=== PATIENT | male | born 1960 | race Caucasian/White ===

== ENCOUNTER 2023-09-04 09:25 | Observation (INO) ==
[~2023-09-04 09:25] MED LIST: Dexamethasone IV 4 MG/ML VIAL 1 ml VIAL ONE; Lidocaine 2% PF 5 ML VIAL ONE; Midazolam 2 mg/2 ml VIAL 1 mg/ml 2 ml VIAL (2 mg) ONE; Ondansetron 4 mg VIAL 2 MG/ML 2 ml VIAL ONE; Propofol 10 MG/ML 20 ML BTL ONE; fentaNYL 100 mcg/2 ml 50 MCG/ML VIAL ONE
[2023-09-04] MEDS ORDERED: Lidocaine 1% VIAL 10 MG/ML 30 ML VIAL ONE (10:23)
[2023-09-04] MEDS ORDERED: Bupivacaine 0.25% SDV 30 ML ONE (10:23)
[2023-09-04] MEDS ORDERED: ceFAZolin VIAL VIAL ONE (11:14)
[2023-09-04] MEDS ORDERED: fentaNYL 100 mcg/2 ml 50 MCG/ML VIAL ONE ×2 (11:23→12:46)
[2023-09-04] MEDS ORDERED: Lactulose 30 ml UDC PO PRN (12:25)
[2023-09-04] MEDS ORDERED: Ondansetron ODT 4 mg TAB 4 MG TAB PO PRN (12:25)
[2023-09-04] MEDS ORDERED: Ondansetron 4 mg VIAL 2 MG/ML 2 ml VIAL IV PRN ×2 (12:25→12:26)
[2023-09-04] MEDS ORDERED: Naloxone 0.4 mg VIAL 0.4 mg/ml 1 ml VIAL IV PRN (12:26)
[2023-09-04] MEDS ORDERED: fentaNYL 100 mcg/2 ml 50 MCG/ML VIAL IV PRN (12:26)
[2023-09-04] MEDS ORDERED: Metoclopramide 5 MG/ML VIAL (10 mg) IV PRN (12:26)
[2023-09-04] MEDS ORDERED: NS 0.45% 1000 ml BAG 1,000 ML IV SCH (13:00)
[2023-09-04] MEDS: Acetaminophen IV 1 GM/100ML 1,000 MG/100 ML BAG IV ONE (15:21)
[2023-09-04] MEDS: Buffered Lidocaine 1% SYRIN 1 ml INTRADERM ONE (15:21)
[2023-09-04] MEDS: Scopolamine 1 mg/72hr PATCH TRANSDERM ONE (15:22)
[2023-09-04] MEDS: Lactated Ringers 1000 ml BAG 1,000 ML IV SCH ×2 (15:47→16:03)
[2023-09-04 16:12] LABS: Albumin 4.3 g/dL (3.2-5.2); Albumin/Globulin Ratio 1.5 (1-3); C Reactive Protein 1.43 mg/L (<8.01); Calcium 9.1 mg/dL (8.6-10.3); Creatinine, Serum 1.42 mg/dL (0.67-1.17); Globulin 2.9 g/dL (2-4); Potassium 4.8 mmol/L (3.5-5.0); Total Bilirubin 0.5 mg/dL (0.2-1.0); Total Protein 7.2 g/dL (6.4-8.9); eGFR CKD-EPI 55.9 (>60)
[2023-09-04] MEDS ORDERED: Dextrose 50% Syringe 50 ml 25 GM/50 ML SYRINGE IV PUSH PRN (16:44)
[2023-09-04 16:53] LABS: ABS Basophils 0.1 10^3/uL (0.0-0.1); ABS Lymphocytes 0.8 10^3/uL (1.0-4.8); ABS Monocytes 0.1 10^3/uL (0.0-1.1); ABS Neutrophils 7.6 10^3/uL (1.5-7.6); Eosinophil % 0.2 %; Hematocrit 35.2 % (38-53); Lymphocyte % 8.9 %; Mean Corpuscular Hemoglobin 29.3 pg (27-33); Mean Corpuscular Volume 86.1 fL (80-97); Mean Platelet Volume 8.7 fL (7.5-11.2); Platelet Count 250 10^3/uL (150-450); Red Blood Count 4.09 10^6/uL (4.06-5.63); Red Cell Distribution Width 13.5 % (12-17); White Blood Count 8.5 10^3/uL (3.6-10.2)
[2023-09-04] MEDS: cefTRIAXone 2 gm/50 mL D5W 2 GM/50 ML BAG IV SCH ×2 (16:57→18:10)
[2023-09-04] MEDS: NS 0.9% 1000 ml BAG 1,000 ML IV ONE (16:57)
[2023-09-04] MEDS: NS 0.9% 100 ml BAG 100 ML IV ONE (18:10)
[2023-09-04 19:04] LABS: Erythrocyte Sed Rate 17 mm/Hr (0-19)
[2023-09-04] MEDS: NS 0.9% 1000 ml BAG 1,000 ML IV SCH (20:51)
[2023-09-05 05:30] LABS: ABS Basophils 0.1 10^3/uL (0.0-0.1); ABS Eosinophils 0.1 10^3/uL (0.0-0.5); ABS Lymphocytes 2.4 10^3/uL (1.0-4.8); ABS Neutrophils 9.1 10^3/uL (1.5-7.6); ABS Nucleated RBC 0.01 10^3/ul; Eosinophil % 0.6 %; Hematocrit 31.4 % (38-53); Hemoglobin 10.7 g/dL (13.2-16.3); Lymphocyte % 18.8 %; Mean Corpuscular Volume 85.4 fL (80-97); Mean Platelet Volume 8.5 fL (7.5-11.2); Nucleated Red Blood Cells % 0.1 %/100WBC (0.0-0.8); Platelet Count 264 10^3/uL (150-450); Red Blood Count 3.68 10^6/uL (4.06-5.63); Red Cell Distribution Width 13.5 % (12-17); White Blood Count 12.6 10^3/uL (3.6-10.2)
[2023-09-05 06:04] LABS: Calcium 8.7 mg/dL (8.6-10.3); Creatinine, Serum 1.42 mg/dL (0.67-1.17); Potassium 4.5 mmol/L (3.5-5.0); eGFR CKD-EPI 55.9 (>60)
[2023-09-05] MEDS: Vitamin THERAPEUTIC TAB PO SCH (08:06)
[2023-09-05] MEDS: Aspirin EC 325 mg TAB.EC PO SCH (08:06)
[2023-09-05] MEDS: [UNRECOGNIZED DRUG - OTHER] PO SCH (08:17)
[2023-09-06 05:29] LABS: ABS Basophils 0.1 10^3/uL (0.0-0.1); ABS Eosinophils 0.3 10^3/uL (0.0-0.5); ABS Lymphocytes 2.6 10^3/uL (1.0-4.8); ABS Monocytes 0.6 10^3/uL (0.0-1.1); ABS Neutrophils 5.2 10^3/uL (1.5-7.6); ABS Nucleated RBC 0.01 10^3/ul; Hematocrit 31.2 % (38-53); Hemoglobin 10.5 g/dL (13.2-16.3); Lymphocyte % 29.8 %; Mean Corpuscular Hemoglobin 28.9 pg (27-33); Mean Corpuscular Hgb Conc 33.8 g/dL (31-36); Mean Corpuscular Volume 85.3 fL (80-97); Mean Platelet Volume 8.4 fL (7.5-11.2); Nucleated Red Blood Cells % 0.1 %/100WBC (0.0-0.8); Platelet Count 246 10^3/uL (150-450); Red Blood Count 3.65 10^6/uL (4.06-5.63); Red Cell Distribution Width 13.7 % (12-17); White Blood Count 8.7 10^3/uL (3.6-10.2)
[2023-09-06 10:30] LABS: Calcium 8.9 mg/dL (8.6-10.3); Creatinine, Serum 0.94 mg/dL (0.67-1.17); Potassium 4.5 mmol/L (3.5-5.0); eGFR CKD-EPI 91.7 (>60)
[2023-09-06 10:49] VITALS: BP 137/77
== END 2023-09-06 16:04 | disposition home or self-care (01) ==
LOC: OR 09:25 → INTOOBSV 15:12 → SSU 15:12
PROVIDERS: ADMIT Orthopaedic Surgery; ATTEND Orthopaedic Surgery